=== PATIENT | female | born 1960 | race Two or more races ===

== ENCOUNTER → 2024-12-15 | Outpatient (CLI) | payer MEDICAID, SELFPAY ==
--- NOTE | 2024-12-15 10:38 | XR_ITS ---
Examination: Hand, left 3 views Technique: Hand AP, oblique, lateral 3 views Date and time of exam: December 15, 2024 1049 hours INDICATIONS: Left wrist pain 3 days. FINDINGS: Acute intra-articular fractures distal radial metaphysis, with mild impaction Fracture ulnar styloid tip Carpal bones metacarpals and digits appear intact IMPRESSION: Acute comminuted intra-articular impacted fracture distal radial metaphysis
--- NOTE | 2024-12-15 10:38 | XR_ITS ---
Examination: Wrist, left 3 views Technique: Wrist AP, oblique, lateral 3 views Date and time of exam: December 15, 2024 1049 hours INDICATIONS: Patient fell 3 days ago with injury to the wrist, wrist pain. FINDINGS: Acute comminuted impacted intra-articular fracture distal radial metaphysis Comminuted fractures ulnar styloid tip Carpal bones intact IMPRESSION: Acute comminuted impacted intra-articular fracture distal radial metaphysis
== END | disposition home or self-care (01) ==
PROVIDERS: PCP Physician Assistant; Referring Provider Physician Assistant; Visit Provider Physician Assistant
DX: S52.92XA Unspecified fracture of left forearm, initial encounter for closed fracture (principal); X58.XXXA Exposure to other specified factors, initial encounter
CPT/HCPCS: 73110; 73130

== ENCOUNTER 2025-02-02 19:00 | Emergency (ER) | payer MEDICAID, SELFPAY ==
--- NOTE | 2025-02-19 18:09 | PD.EDRME ---
Rapid Medical Screening Exam RME Arrival date/time: 02/02/25 19:00 Chief Complaint: Chest Pain Time Seen by Provider: 02/02/25 20:06 MD Attestation MD Attestation Pt left after triage and I did not evaluate pt
== END 2025-02-02 20:15 | disposition left against medical advice (07) ==
PROVIDERS: Emergency Provider Emergency Medicine
DX: R07.9 Chest pain, unspecified (principal); Z53.21 Procedure and treatment not carried out due to patient leaving prior to being seen by health care provider
CPT/HCPCS: 99283

== ENCOUNTER 2025-02-19 20:35 | Emergency (ER) | payer MEDICAID, SELFPAY ==
[2025-02-19 20:49] VITALS: BP 149/88; PULSE 122; RESP 18; TEMP 37.8; O2SAT 96; BMI 28.0
--- NOTE | 2025-02-19 21:07 | XR_ITS ---
Examination: CT abdomen and pelvis without contrast. Coronal 3-D reconstructions. Sagittal 2-D reconstructions. Date and time of exam:February 19, 2025 2126 hrs. Indications: Nausea vomiting back pain today CTDI: vol (mGy): 7.67 DLP: (mGycm): 444 Technique: Axial images of the abdomen have been obtained, 3 mm slice thickness Intravenous contrast material has not been administered. Low dose protocols were performed. One or more of the following dose reduction techniques were used; automated exposure control, adjustment of the mA and/or KV according to patient size, use of iterative reconstruction technique. Findings: No visualized liver or splenic lesion No gallstones No pancreatic mass Minimal left hydronephrosis, 3 x 6 mm proximal left ureteral calculus Normal appendix No bowel obstruction No pelvic mass Minimal thickening of urinary bladder wall Moderate osteopenia Impression: Minimal left hydronephrosis secondary to 6 x 3 mm proximal left ureteral calculus
--- NOTE | 2025-02-19 21:07 | XR_ITS ---
Examination: AP chest single view Technique one AP upright portable chest single view Date and time: February 19, 2025 2143 hrs., Comparison the 2021 Indications: Chest pain today. Findings: Mild enlargement cardiac contour. No pneumonia or pulmonary edema Prominent osteopenia Impression: No pneumonia or pulmonary edema
--- NOTE | 2025-02-19 21:07 | EKG_ITS ---
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
--- NOTE | 2025-02-19 21:09 | EDRME_ITS ---
Rapid Medical Screening Exam FORMERLY [facility], [facility]–1983 Arrival date/time: 02/19/25 20:35 64F with history of DM presents to ED with several days of L flank pain and N/V. No dysuria, but patient states last time she felt like this she was admitted for a UTI. Patient also has some heart burn sensation. Patient denies URI symptoms. Chief Complaint: Fever Vital signs: Vital Signs Temperature 100.1 F 02/19/25 20:49 Pulse Rate 122 H 02/19/25 20:49 Respiratory Rate 18 02/19/25 20:49 Blood Pressure 149/88 H 02/19/25 20:49 Pulse Oximetry (%) 96 02/19/25 20:49 Oxygen Delivery Method Room Air 02/19/25 20:49
[2025-02-19 21:31] VITALS: TEMP 37.8
[2025-02-19] MEDS: ACETAMINOPHEN 500 MG TABLET 1000 MG PO (21:31)
[2025-02-19] MEDS: SODIUM CHLORIDE 0.9% 1000 ML 1,000 ML 999 ML IV ×2 (21:38→21:45)
[2025-02-19 22:00] LABS: Lactate (Lactic Acid) 1.7 mMol/L (0.4-2.0)
[2025-02-19] MEDS: PIPER/TAZO 3.375 GM PREMIX 3.375 GM/50 ML BAG IV (22:16)
[2025-02-19 22:17] LABS: Basophils # (Auto) 0.0 Thou/mm3 (0.0-0.2); Basophils % (Auto) 0 % (0-2.5); Eosinophils # (Auto) 0.0 Thou/mm3 (0.0-0.5); Eosinophils % (Auto) 0 % (0-10); Hematocrit 44.4 % (36.0-46.0); Hemoglobin 15.1 g/dL (12.0-16.0); Immature Granulocytes Auto 0.07 Thou/mm3 (0.00-0.00); Lymphocytes # (Auto) 2.3 Thou/mm3 (1.0-4.8); Lymphocytes % (Auto) 16 % (10-50); Mean Corpuscular HGB Conc 34.0 g/dl (31.0-37.0); Mean Corpuscular Hemoglobin 31.7 pg (25.0-35.0); Mean Corpuscular Volume 93 fL (80-100); Monocytes # (Auto) 1.1 Thou/mm3 (0.0-0.8); Monocytes % (Auto) 8 % (0-12); Neutrophils # (Auto) 10.7 Thou/mm3 (1.8-7.7); Neutrophils % (Auto) 75 % (37-80); Nucleated Red Blood Cell # 0.00 Thou/mm3 (0.00-0.00); Nucleated Red Blood Cell % 0 /100 WBC (0); Platelet Count 272 Thou/mm3 (140-440); RDW Standard Deviation 44.6 fL (36.4-46.3); Red Blood Count 4.76 Miln/mm3 (4.00-5.20); White Blood Count 14.2 Thou/mm3 (3.6-11.0)
--- NOTE | 2025-02-19 22:22 | EDNOTE_ITS ---
ED Fever RME/HPI General Chief Complaint: Fever Stated Complaint: FEVER, N/V, BACK PAIN Time Seen by Provider: 02/19/25 21:19 Arrival date/time: 02/19/25 20:35 RME / HPI RME / HPI Narrative: 02/19/25 20:35 64F with history of DM presents to ED with several days of L flank pain and N/V. No dysuria, but patient states last time she felt like this she was admitted for a UTI. Patient also has some heart burn sensation. Patient denies URI symptoms. DR. MANZANO MAIN ED EVALUATION: Patient presenting BIB daughter with complaint of ongoing fever/chills/left flank pain radiating to the LLQ x 2-3 days duration. No dysuria or increased urinary frequency. Reports nausea without emesis. Reports relative constipation with last normal BM 3 days ago. PMH of Type II DM. Shx of and partial hysterectomy. Denies any allergies. Social history is unremarkable. Related Data Home Medications ?Medication ?Instructions ?Recorded ?Confirmed Glyburide/Metformin * (GLUCOVANCE 1 tab PO BIDAC ##0 0 02/09/13 09/02/17 5/500 *) amoxicillin 500 mg capsule 1 cap PO TID 09/02/1709/02 Previous Rx's ?Medication ?Instructions ?Recorded albuterol sulfate 90 mcg/actuation 2 puff inhalation Q 6H PRN 09/02/17 aerosol inhaler shortness of breath or wheez ing #8.5 grams cephalexin 500 mg capsule 500 mg PO BID #14 caps 11/03 Allergies Allergy/AdvReac Type Severity Reaction Status Date / Time No Known Allergies Allergy Verified 02/02/25 19:04 Review of Systems Review of Systems Systems Reviewed: All systems reviewed, normal except as documented Past Medical History Past Medical History ENDOCRINE: Positive Diabetes Mellitus Type 2 Physical Exam Narrative Physical exam: GEN. APPEARANCE: The patient is alert awake oriented X-3 in no distress, lying down comfortably, appears acutely ill, but does not look toxic. Patient has good eye contact. Patient is cooperative. Tachycardic with low-grade fever. VITALS: All vitals were reviewed and the pulse ox is 100% on room air which is normal according to my interpretation. HEENT: Normocephalic, atraumatic. Pupils are equal and reactive. Oral mucosa is moist. Patent Nares NECK: Supple, nontender, no thyromegaly, no meningismus, no JVD, no step offs CHEST: Symmetrical, atraumatic, and with equal expansion , Nontender on palpation no deformity and no crepitus. CARDIOVASCULAR: Heart regular rhythm no murmur or gallop rub or extra beats. LUNGS: Clear to auscultation bilaterally with symmetrical chest rise. No laboring tachypnea or wheezing. No intercostal subcostal retraction. No rales and no rhonchi. ABDOMEN: Soft, flat, mild tenderness to palpation of the LLQ extending towards the left flank, no guarding or rebound tenderness. There are no abnormal masses palpated. Active and normal bowel sounds. EXTREMITIES: Nontender. No edema. No cyanosis. Patient is able to move all 4 extremities well, with full ROM and good CSM. SKIN: Warm and dry, no jaundice or rashes noted. MUSCULOSKELETAL: Noted tenderness over SI joint, no midline lumbar tenderness. There is no CVA tenderness. No paraspinal muscle spasm or tenderness. NEURO: Patient is CHAN x 4, Cranial nerves II through XII grossly intact. There is no focal neurologic deficits noted. 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 PSYCHIATRIC: Patient is in normal mood and affect, cooperative, no SI or HI or hallucinations. ED Exam Narrative Physical exam: See above. Course Course Course Narrative: Sepsis alert initiated. Orders made at this time are congruent with ED Adult Sepsis Order List. Re-evaluation is to be completed. CXR was ordered for determining the etiology of shortness of breath. 0237: [facility] made aware of the patient?s HPI, PMHx, lab and/or radiology results. Treatment plan was discussed. 0242: [facility]oroastrianism made aware of the patient?s HPI, PMHx, lab and/or radiology results. Treatment plan was discussed. Dr. Key will accept patient for transfer. Quality Measures none Orders Category Date Time Status Bedside COVID-19 Antigen Test NOW Care 02/19/25 21:54 Active Bedside Influenza A&B Antigen Test NOW Care 02/19/25 21:54 Completed EKG (ED ONLY) *Do not use* NOW Care 02/19/25 21:07 Completed Insert IV NOW Care 02/19/25 21:[address] abdomen pelvis wo con Stat Exams 02/19/25 21:07 Completed EKG (ED Only) Stat Exams 02/19/25 21:07 Draft XR chest 1V portable Stat Exams 02/19/25 21:07 Completed Amylase Stat Lab 02/19/25 21:46 Completed Blood Culture (Lab) Stat Lab 02/19/25 21:46 Received CBC Stat Lab 02/19/25 21:46 Completed Comprehensive Metabolic Panel Stat Lab 02/19/25 21:46 Completed Lactate (Lactic Acid) Stat Lab 02/19/25 21:46 Completed Procalcitonin Stat Lab 02/19/25 21:46 Completed Troponin I Stat Lab 02/19/25 21:46 Completed Urinalysis, C/S if Indicated Stat Lab 02/19/25 22:06 Completed Urine Culture Stat Lab 02/19/25 22:06 Received Acetaminophen Tab [Tylenol ES Tab] Med 02/19/25 21:07 Discontinued 1,000 mg PO X1 ONE Metoclopramide Inj [Reglan Inj] Med 02/19/25 21:59 Discontinued 5 mg IVP X1 ONE Morphine* Inj Med 02/19/25 21:58 Discontinued 4 mg IVP X1 ONE Piper/Tazo 3.375 gm Premix [Zosyn] Med 02/19/25 21:25 Discontinued 3.375 gm in 50 ml IV X1 Sodium Chloride 0.9% 1000 ml [Ns] 1,000 ml Med 02/19/25 21:07 Discontinued IV 999 mls/hr Sodium Chloride 0.9% 1000 ml [Ns] 1,000 ml Med 02/19/25 21:25 Discontinued IV 999 mls/hr Vancomycin Inj 1,000 mg Med 02/19/25 21:45 Discontinued Sodium Chloride 0.9% 250 ml [Ns] 250 ml IV X1 Vancomycin Pharmacy to Dose Med 02/20/25 09:00 Pending 1 each IV QDAY Vital Signs Vital signs: Vital Signs Temperature 100.1 F 02/19/25 20:49 Pulse Rate 122 H 02/19/25 20:49 Respiratory Rate 18 02/19/25 20:49 Blood Pressure 149/88 H 02/19/25 20:49 Pulse Oximetry (%) 96 02/19/25 20:49 Oxygen Delivery Method Room Air 02/19/25 20:49 Fever MDM Narrative MDM Narrative:: Scribe Attestation: I, Mila Kelly, am scribing for and in the presence of Dr. Manzano. Provider Notation: Although this document has been carefully reviewed, there may still be some phonetic and other typographical errors. These errors are purely grammatical due to imperfections in the software program and should not be construed in any way to compromise the substance of the patient's medical care during this visit. Patient presenting BIB daughter with complaint of ongoing fever/chills/left flank pain radiating to the LLQ x 2-3 days duration. No dysuria or increased urinary frequency. Please see PE findings. Laboratory markers pertinent for elevated WBC of 14, normal hemoglobin and platelet count with no left shift or bandemia. Serum chemistries essentially unremarkable excluding elevated calcium of 10.7, and mildly elevated LFT's. Patient placed on cardiac nurse enrolled in sepsis protocol, and received both fluids and ABX without incident. Patient referred for CTA scan of Abdomen/Pelvis which demonstrated obstructive uropathy of right kidney with hydronephrosis. Patient's vitals normalized after basic treatment. Currently resting comfortably and will be transferred to [facility]. Patient data External records reviewed:: [facility] previous records (Reviewed prior ED records from 11/03/21. Patient was seen for UTI (urinary tract infection).) Clinical information provided by:: family (Daughter) Social determinants that could affect healthcare access:: none Patient has the following chronic illnesses:: Type II DM How is presenting disease/condition affected by chronic disease/condition?: exacerbated by Evaluation data The following diagnostics were reviewed and interpreted by me:: lab results, radiology exam(s) and EKG tracing(s) Lab and/or radiology exams considered but not ordered:: None Interpretation Summary: RADIOLOGY Chest X-Ray: Findings: Mild enlargement cardiac contour. No pneumonia or pulmonary edema Prominent osteopenia Impression: No pneumonia or pulmonary edema Abdomen/Pelvis CT: Findings: No visualized liver or splenic lesion No gallstones No pancreatic mass Minimal left hydronephrosis, 3 x 6 mm proximal left ureteral calculus Normal appendix No bowel obstruction No pelvic mass Minimal thickening of urinary bladder wall Moderate osteopenia Impression: Minimal left hydronephrosis secondary to 6 x 3 mm proximal left ureteral calculus Medications / Prescriptions Medications or Prescriptions considered but not ordered:: None Medication administrations:: Medication Administration History Pharmacy Consult (Vancomycin Pharmacy To Dose 1 Each Each) 1 each IV QDAY ROBINSON Stop: 03/22/25 08:59 Discontinued Medications Acetaminophen (Acetaminophen 500 Mg Tablet) 1,000 mg PO X1 ONE Stop: 02/19/25 21:08 Last Admin: 02/19/25 21:31 Dose: 1,000 mg Documented By: DT Sodium Chloride (Ns) 1,000 mls @ 999 mls/hr IV .Q1H1M ONE Stop: 02/19/25 22:07 Last Infusion: 02/19/25 22:47 Dose: Infused Documented By: Admin: 02/19/25 21:38 Dose: 999 mls/hr Documented By: DT Piperacillin/Tazobactam/Dextrose (Zosyn) 3.375 gm in 50 mls @ 100 mls/hr IV X1 ONE; Protocol Stop: 02/19/25 21:54 Last Infusion: 02/19/25 22:47 Dose: Infused Documented By: Admin: 02/19/25 22:16 Dose: 100 mls/hr Documented By: DT Sodium Chloride (Ns) 1,000 mls @ 999 mls/hr IV .Q1H1M ONE Stop: 02/19/25 22:25 Last Infusion: 02/19/25 22:48 Dose: Infused Documented By: Admin: 02/19/25 21:45 Dose: 999 mls/hr Documented By: DT Vancomycin HCl 1,000 mg/ (Sodium Chloride) 250 mls @ 120 mls/hr IV X1 ONE Stop: 02/19/25 23:49 Last Infusion: 02/20/25 01:03 Dose: Infused Documented By: Admin: 02/19/25 22:56 Dose: 120 mls/hr Documented By: DT Metoclopramide HCl (Metoclopramide Inj 5 Mg/Ml Vial 2 Ml) 5 mg IVP X1 ONE; Protocol Stop: 02/19/25 22:00 Last Admin: 02/19/25 22:48 Dose: Not Given Documented By: DT Non-Admin Reason: Patient Refused Morphine Sulfate (Morphine Sulf Inj 4 Mg/Ml Vial) 4 mg IVP X1 ONE Stop: 02/19/25 21:59 Last Admin: 02/19/25 23:52 Dose: Not Given Documented By: DT Non-Admin Reason: Patient Refused See above if any. Consultations Consultation(s) initiated? (list below): Yes Consultation #1 (Physician, Specialty, Details): [facility] made aware of the patient?s HPI, PMHx, lab and/or radiology results. Treatment plan was discussed. Unable to accept transfer at this time as they do not have Urology available from 11PM to 6AM. Will call Urologist at 5:50 AM on our behalf. Time: 00:25 Consultation #2 (Physician, Specialty, Details): [facility] made aware of the patient?s HPI, PMHx, lab and/or radiology results. Treatment plan was discussed. Will call back Time: 01:02 Consultation #3 (Physician, Specialty, Details): Zoroastrianism made aware of the patient?s HPI, PMHx, lab and/or radiology results. Treatment plan was discussed. Time: 02:30 Diagnosis Fever Differential Diagnosis: cellulitis, fever of unknown origin, gastroenteritis, community acquired pneumonia, pyelonephritis, viral infection, sepsis, influenza and other (SBO) Most likely diagnosis given after review of the tests above:: Acute sepsis, Obstructive uropathy, Cystitis, Ureterolithiasis Admission Indicated Admission indicated?: not indicated Explain why admission is indicated or not indicated:: Pending transfer. Admission Request Was there a request for admission?: No Disposition Plan Disposition Plan: Transfer Critical Care Time Critical Care Time Critical Care Time: Yes Total Critical Care Time (min.): 40 Attestation: The high probability of sudden, clinically significant deterioration in the patient?s condition required the highest level of my preparedness to intervene urgently. The services I provided to this patient were to treat and/or prevent clinically significant deterioration. Services included the following: chart data review, reviewing nursing notes and/or old charts, documentation time, consultant luxury and [employer]. vice president [employer] (ex ) collaboration regarding findings and treatment options, medication orders and management, direct patient care, vital sign assessments and ordering, interpreting and reviewing diagnostic studies and lab tests. Aggregate critical care time includes only time during which I was engaged in work directly related to the patient?s care, as described above, whether at bedside or elsewhere in the Emergency Department. It did not include time spent performing other reported procedures or the services of residents, students, nurses or physician assistants. Discharge Plan Plan Patient Disposition: [facility] Service Needed for Transfer: Urology Prescriptions/Referrals Prescriptions/Med Rec: No Action Glyburide/Metformin * (GLUCOVANCE 5/500 *) 1 TAB tablet 1 tab PO BIDAC Qty: 0 amoxicillin 500 mg Capsule 1 cap PO TID albuterol sulfate 90 mcg/actuation HFA aerosol inhaler 2 puff INH Q6H PRN (Reason: shortness of breath or wheezing) Qty: 8.5 0RF Rx Instructions: administer with spacer cephalexin 500 mg capsule 500 mg PO BID Qty: 14 0RF Referrals: Jeff Glass MD [Primary Care Provider, Family Practice] - In 1 week Problem List Clinical Impression: Acute sepsis, Obstructive uropathy, Cystitis, Ureterolithiasis Patient/Caregiver Discharge Instructions Print Language: Albanian Stand Alone Forms: Catherine Award Info., Patient Portal Info Letter
[2025-02-19 22:23] LABS: Collection Type, Urine Clean Catch
[2025-02-19 22:31] VITALS: TEMP 37
[2025-02-19 22:32] LABS: Bilirubin,Urine Negative (Negative); Blood,Urine 1+ (Negative); Clarity,Urine Clear (Clear/Hazy); Color,Urine Lt-Yellow (Lt Yel-Yel); Glucose, Urine 4+ (Negative); Ketones,Urine 1+ (Negative); Leukocyte Esterase,Urine Positive (Negative); Nitrite,Urine Negative (Negative); PH,Urine 6.0 (5.0-7.0); Protein,Urine 1+ (Neg - Trace); RBC,Urine 5 /hpf (0-3); Specific Gravity,Urine 1.018 (1.001-1.035); Squamous Epithelial Cell,Urine 3 /hpf (0-5); Urobilinogen,Urine Negative mg/dL (0.0-1.0); WBC,Urine 87 /hpf (0-5)
[2025-02-19 22:35] LABS: Culture Indicated,Urine Yes
[2025-02-19 22:52] LABS: Alanine Aminotransferase 108 U/L (10-49); Albumin, Serum 5.2 gm/dL (3.4-4.8); Albumin/Globulin Ratio 1.4 (1.2-2.2); Alkaline Phosphatase 124 U/L (46-116); Amylase 84 U/L (30-118); Anion Gap 12 (7-16); Aspartate Amino Transferase 99 U/L (0-34); BUN/Creatinine Ratio 9 Ratio (12-20); Bilirubin,Total 0.7 mg/dL (0.3-1.2); Blood Urea Nitrogen 8 mg/dL (9-23); Calcium 10.7 mg/dL (8.3-10.6); Calcium (Corrected) 10.7 mg/dL (8.5-10.1); Carbon Dioxide 24.1 mMol/L (20.0-31.0); Chloride 99 mMol/L (98-107); Creatinine (Component) 0.9 mg/dL (0.6-1.3); Estimated Creatinine Clearance 55.5 mL/min (>60); Globulin 3.6 gm/dL (2.3-3.5); Glucose 176 mg/dL (74-106); Osmolality,Calculated 272 (275-295); Potassium 4.2 mMol/L (3.4-5.1); Procalcitonin 0.91 ng/ml (0.0-0.49); Sodium 135 mMol/L (136-145); Total Protein 8.8 gm/dL (5.7-8.2); Troponin I 0.034 ng/mL (0.0-0.045); eGFR > 60 See Note
[2025-02-19] MEDS: Vancomycin Inj 1,000 MG in SODIUM CHLORIDE 0.9% 250 ML 250 ML 120 MG IV (22:56)
[2025-02-19 22:57] VITALS: BP 135/85; PULSE 85; RESP 14; TEMP 37; O2SAT 95
--- NOTE | 2025-02-19 23:22 | PC.NURSE ---
I CALLED [facility] TO SEE IF THEY HAVE UROLOGY AND THEY DO NOT HAVE UROLOGY AT THIS TIME.
[2025-02-19 23:30] VITALS: BP 120/85; PULSE 95; RESP 14; TEMP 37; O2SAT 96
--- NOTE | 2025-02-19 23:38 | PC.NURSE ---
I PUT A CALL OUT TO [facility] AND SPOKE WITH CHRISTOPHER AND PUT IN A TRANSFER REQUEST FOR UROLOGY.
--- NOTE | 2025-02-20 00:29 | PC.NURSE ---
DR. ARGUETA IS ON THE PHONE WITH CHRISTOPHER FROM [facility] AT THIS TIME FOR CLINICAL INFORMATION.
--- NOTE | 2025-02-20 00:56 | PC.NURSE ---
I CALLED THE [facility] RIGHT NOW AND SPOKE WITH KANDY AND FAXED OVER THE PT INFORMATION. WE ARE PENDING A CALL BACK AT THIS TIME.
[2025-02-20 01:02] VITALS: BP 113/85; PULSE 90; RESP 16; TEMP 37; O2SAT 96
[2025-02-20 02:26] VITALS: BP 112/59; PULSE 67; RESP 14; O2SAT 99
--- NOTE | 2025-02-20 02:55 | PC.NURSE ---
REILLY FROM [facility] CALLED AND THIS PT IS ACCEPTED BY DR. DRAKE TO [facility]. THIS IS A ER:ER TRANSFER AND NUMBER FOR REPORT IS [phone].
[2025-02-20 05:13] VITALS: BP 132/96; PULSE 84; RESP 19; TEMP 37.6; O2SAT 100
[2025-02-20] MEDS: MORPHINE SULF INJ 4 MG/ML VIAL IVP (05:27)
== END 2025-02-20 05:39 | disposition short-term general hospital (02) ==
PROVIDERS: Physician Assistant; Emergency Provider Emergency Medicine; PCP Family Medicine
DX: A41.9 Sepsis, unspecified organism (principal); N13.6 Pyonephrosis; E11.9 Type 2 diabetes mellitus without complications
CPT/HCPCS: 36415; 71045; 74176; 80053; 81001; 82150; 83605; 84145; 84484; 85025; 87040; 87077; 87086; 87186; 87400; 87811; 93005; 96361; 96365; 96366; 96375; 99284; J2270; J2543; J3373; J7030; J7050; A9270

== ENCOUNTER 2025-04-08 09:10 | Outpatient (RCR) | payer MEDICAID, SELFPAY ==
--- NOTE | 2025-04-08 09:31 | PTNOTE_ITS ---
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 Pt fell at a swimming pool in December and fractured the L distal radius. It's unclear what the surgical history is since dtr can't remember or explain. 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 She reports difficulty picking objects up. PMH: DM, high cholesterol Imaging: Xray of wrist in EMR Acute comminuted intra-articular impacted fracture distal radial metaphysis Pt goal: to pickup things with more strength Objective: Umberto mechanical engineering draftsperson strength: R: 45 lbs, L: 15 lbs L wrist AROM: Flexion: 55 deg Ext: 45 deg Fist AROM: 80% of full TTP: non of incision scar Assessment: Pt presents with decreased mechanical engineering draftsperson strength and fist ROM of L hand consistent with referring Dx. Pt requires skilled therapy and has good rehab potential. Eval followed by HEP printout. Short Term and Alf Goals 1. Ind with HEP 2. Improved mechanical engineering draftsperson strength of L hand to 25 lbs 3. Improved fist AROM to full 4. Pt will lift 5 lb objects and not drop them x5x Treatment Plan ? 1. Manual therapy ? 2. Therex ? 3. Modalities as indicated, moist heat, ice, estim Frequency and Duration: 2x a week for 12 visits plus the evaluation Certification Dates: 04/08/25 to 07/07/25 Procedure Charges OP PT Eval Mod Complex 30 minutes: Yes
== END 2025-04-10 23:59 | disposition home or self-care (01) ==
LOC: CPTX 09:10
PROVIDERS: PCP Nurse Practitioner Gerontology; Referring Provider Nurse Practitioner Gerontology; Visit Provider Nurse Practitioner Gerontology
DX: R53.1 Weakness (principal); S52.502D Unspecified fracture of the lower end of left radius, subsequent encounter for closed fracture with routine healing; S52.602D Unspecified fracture of lower end of left ulna, subsequent encounter for closed fracture with routine healing; W16 Fall, jump or diving into water
CPT/HCPCS: 97162

== ENCOUNTER 2025-04-23 10:30 | Outpatient (RCR) | payer MEDICAID, SELFPAY ==
--- NOTE | 2025-04-13 11:02 | PT.ODAYNRPT ---
PT Outpatient Daily Note OP Daily Note Outpatient Physical Therapy Treatment Date: 04/13/25 Visit Reasons: left arm fracture Subjective: Same as time of evaluation Objective: See F/S for therex MT: PROM into wrist extension and flexion x5' MHP x5' Assessment: Pain limits end-range L wrist extension and flexion. Plan: Continue per POC Length of Time (minutes) of Treatment: 30 Minutes Procedure Charges Therapeutic Exercise 30 minutes: Yes
--- NOTE | 2025-04-16 11:37 | PT.ODAYNRPT ---
PT Outpatient Daily Note OP Daily Note Outpatient Physical Therapy Treatment Date: 04/16/25 Visit Reasons: left arm fracture Subjective: Low pain in L wrist today Objective: See F/S for therex MT: PROM into wrist extension and flexion x5' MHP x5' Assessment: Pain limits end-range L wrist extension and flexion. Improving PROM with manual therapy of extension and flexion. Plan: Continue per POC Length of Time (minutes) of Treatment: 30 Minutes Procedure Charges Therapeutic Exercise 30 minutes: Yes
--- NOTE | 2025-04-23 11:36 | PT.ODAYNRPT ---
PT Outpatient Daily Note OP Daily Note Outpatient Physical Therapy Treatment Date: 04/23/25 Visit Reasons: left arm fracture Subjective: Pt brought in by son who translates, pt speaks little Macedonian. Pt c/o hand pain pointing at wrist and medial to scar. Objective: Please see flow sheet for ther ex list. Assessment: Performed PROM and scar mobs, pt tolerated well. Plan: Continue with pOC. Length of Time (minutes) of Treatment: 30 Minutes Procedure Charges Therapeutic Exercise 30 minutes: Yes
== END 2025-05-10 23:59 | disposition home or self-care (01) ==
LOC: CPTX 10:30
PROVIDERS: PCP Nurse Practitioner Gerontology; Referring Provider Nurse Practitioner Gerontology; Visit Provider Nurse Practitioner Gerontology
DX: R53.1 Weakness (principal); S52.502D Unspecified fracture of the lower end of left radius, subsequent encounter for closed fracture with routine healing; S52.602D Unspecified fracture of lower end of left ulna, subsequent encounter for closed fracture with routine healing; W16 Fall, jump or diving into water; E11.9 Type 2 diabetes mellitus without complications
CPT/HCPCS: 97110